=== PATIENT | female | born 1995 | race Two or more races ===

== ENCOUNTER 2016-10-08 06:02 | Emergency (ER) | payer MEDICAID ==
[~2016-10-08] VITALS: Ht 162.6 cm; Wt 55.3 kg
[~2016-10-08 06:02] MED LIST: AUGMENTIN 875-1 EAC1 ORAL; AZITHROMYCIN250 MG ORAL; IBUPROFEN600 MG ORAL; IBUPROFEN800 MG PO; NKM; PHENERGAN6.25 MG/5 ORAL
[2016-10-08 06:15] VITALS: BP 101/50
--- NOTE | 2016-10-08 06:26 | Emergency Room Report ---
History of Present Illness General Chief Complaint: Earache Source: Patient Present Illness HPI Is a 21-year-old female with no past medical history. She presents with chief complaint of right ear pain. Onset about 2 hours ago. Her nose also stuffy. Pain is 10 out of 10. Throbbing nature. No fever chills denies nausea no vomiting. She thinks she has allergy. She's been sneezing a lot. Allergies: Coded Allergies: No Known Allergies (Unverified , 11/02/12) Patient History Past Medical History: see triage record, old chart reviewed Past Surgical History: none Pertinent Family History: none Social History: Denies: smoking Last Menstrual Period: LAST MONTH Now: No Immunizations: other Reviewed Nursing Documentation: PMH: Agreed, PSxH: Agreed Nursing Documentation-PMH Past Medical History: No Stated History Review of Systems Eye: Denies: blurred vision, eye pain ENT: Reports: ear pain, Denies: nose congestion, throat swelling Respiratory: Denies: cough, shortness of breath Cardiovascular: Denies: chest pain, palpitations Gastrointestinal: Denies: abdominal pain, diarrhea, nausea, vomiting Musculoskeletal: Denies: back pain, joint pain Skin: Denies: rash Neurological: Denies: headache, numbness Endocrine: Denies: increased thirst, increased urine Hematologic/Lymphatic: Denies: easy bruising All Other Systems: negative except mentioned in HPI Physical Exam Vital Signs Date Time Temp Pulse Resp B/P Pulse Ox O2 Delivery O2 Flow Rate FiO2 10/08/16 06:06 97.9 96 16 92/47 100 Room Air vitals normal Sp02 EP Interpretation: reviewed, normal General Appearance: well appearing, no apparent distress, alert Head: normocephalic, atraumatic Eyes: bilateral eye EOMI, bilateral eye PERRL ENT: hearing grossly normal, normal pharynx, other - Right TM is erythematous and retracted. Neck: full range of motion, supple, no meningismus Respiratory: chest non-tender, lungs clear, normal breath sounds Cardiovascular #1: regular rate, rhythm, no murmur Gastrointestinal: normal bowel sounds, non tender, no mass, no organomegaly, no bruit, non-distended Musculoskeletal: back normal, gait/station normal, normal range of motion Psychiatric: mood/affect normal Skin: warm/dry Medical Decision Making Diagnostic Impression: Primary Impression: Right otitis media Qualified Codes: H66.001 - Acute suppurative otitis media without spontaneous rupture of ear drum, right ear Additional Impression: Allergic rhinitis Qualified Codes: J30.9 - Allergic rhinitis, unspecified ER Course Patient presents with right ear pain. She has no otitis media. Most likely secondary to obstruction from allergic component. She said she lives in a house is very old and has carpet. She's they have not changed a filter for air conditioning. This may be causing issue with allergies. We'll put her on antihistamine. No evidence of rupture tympanic membrane. No meningitis. Last Vital Signs Date Time Temp Pulse Resp B/P Pulse Ox O2 Delivery O2 Flow Rate FiO2 10/08/16 06:06 97.9 96 16 92/47 100 Room Air Status: improved Disposition: HOME, SELF-CARE Condition: Stable Scripts Loratadine (CLARITIN) 10 Mg Tablet 10 MG ORAL DAILY, #30 TAB Prov: SUMEET ROJAS M.D. 10/08/16 Ibuprofen* (MOTRIN*) 600 Mg Tablet 600 MG ORAL THREE TIMES A DAY, #30 TAB 0 Refills Prov: SUMEET ROJAS M.D. 10/08/16 Amoxicillin/Potassium Clav 875-125* (AUGMENTIN 875-125 TABLET*) 1 Each Tablet 1 TAB ORAL TWICE A DAY, #14 TAB Prov: SUMEET ROJAS M.D. 10/08/16 Patient Instructions: Otitis Media, Adult, [id number] Additional Instructions: Followup your doctor 7 days. Don't blow your nose. You may benefit from an air. Fire and changing to the filter on your air conditioning vent. Return if symptom worsen. SUMEET ROJAS M.D. Oct 08, 2016 06:26
[2016-10-08] MEDS ORDERED: AUGMENTIN 875-1 EAC1 ORAL (06:29)
[2016-10-08] MEDS ORDERED: IBUPROFEN600 MG ORAL (06:29)
[2016-10-08] MEDS ORDERED: CLARITIN10 MG ORAL (06:29)
[2016-10-08] MEDS ORDERED: Augmentin 875mg Tab ORAL ONE (06:30)
[2016-10-08 06:35] VITALS: BP 101/50
== END 2016-10-08 06:40 | disposition home or self-care (01) ==
LOC: EMR 06:40
DX: H66.001 Acute suppurative otitis media without spontaneous rupture of ear drum, right ear (principal); J30.9 Allergic rhinitis, unspecified
CPT/HCPCS: 99284

== ENCOUNTER 2018-07-22 14:19 | Emergency (ER) | payer MEDICAID ==
[~2018-07-22] VITALS: Ht 165.1 cm; Wt 52.2 kg
[~2018-07-22 14:19] MED LIST changes: +CLARITIN10 MG ORAL
[2018-07-22] MEDS ORDERED: NKM (14:31)
--- NOTE | 2018-07-22 14:32 | NUR ---
ED Nurse Note: a/ox4. ambulated in to ER due to left ankle pain 10/10 x last night. Pt reports that she tripped over when she was carrying a child last night. Pt states that she was able to ambulate yesterday but pain increased today.
--- NOTE | 2018-07-22 14:42 | Emergency Room Report ---
History of Present Illness General Chief Complaint: Lower Extremity Injury Source: Patient Present Illness HPI 23-year-old female patient presents the ER complaining of left foot and ankle pain status post injury 1 day ago. Reports that she was walking up stairs yesterday when she missed a step and twisted her foot. Reports does not remember how she twisted her foot. Reports pain with ambulation. Reports pain symptoms have improved since yesterday however still "very painful" to walk and bear weight. Reports took Tylenol yesterday for relief of symptoms. States does not take any medication today. Denies hitting her head or loss consciousness. Denies syncope or dizziness prior to fall. Denies fever, chest pain, shortness of breath. Allergies: Coded Allergies: No Known Allergies (Unverified , 07/22/18) Patient History Past Medical History: see triage record Last Menstrual Period: 07/21/18 Now: No Reviewed Nursing Documentation: PMH: Agreed; PSxH: Agreed Nursing Documentation-PMH Past Medical History: No Stated History Review of Systems All Other Systems: negative except mentioned in HPI Physical Exam Vital Signs Date Time Temp Pulse Resp B/P (MAP) Pulse Ox O2 Delivery O2 Flow Rate FiO2 07/22/18 14:27 98.4 135 18 102/48 95 Room Air Sp02 EP Interpretation: reviewed, normal General Appearance: well appearing, no apparent distress, alert, GCS 15, non- toxic Head: normocephalic, atraumatic Eyes: bilateral eye normal inspection, bilateral eye PERRL ENT: hearing grossly normal, normal pharynx, no angioedema, normal voice, uvula midline, moist mucus membranes Neck: full range of motion Respiratory: lungs clear, normal breath sounds, no rhonchi, no respiratory distress, no accessory muscle use, no wheezing, speaking full sentences Cardiovascular #1: regular rate, rhythm, no edema Cardiovascular #2: 2+ dorsalis pedis (R), 2+ dorsalis pedis (L) Musculoskeletal: back normal, digits/nails normal, gait/station normal, normal range of motion, swelling - Mild over dorsum of left foot, other - Cap refill less than 2 seconds,NVI, negative syndesmotic squeeze test, no tenderness to palpation over bilateral malleoli or base of fifth metatarsal, no ecchymosis or erythema, no deformity, tender Psychiatric: mood/affect normal Skin: no rash Medical Decision Making PA Attestation Dr. Elliott is my supervising Physician whom patient management has been discussed with. Diagnostic Impression: Primary Impression: Sprain of foot, left ER Course Pt. presents to the ED c/o left foot and ankle pain. Ddx considered but are not limited to fracture, sprain, strain, contusion, dislocation. No erythema, no warmth to touch, no fever, nontoxic appearing, low suspicion for septic joint. Soft compartments, no pulselessness, no pallor, no paresthesias, low suspicion for compartment syndrome at this time. Vital signs: are WNL, pt. is afebrile Ordered X-ray and pain medication. ER COURSE Provided with pain medication. An X-ray of the left foot shows possible fracture of the medial cuneiform, discussed with radiologist, possible fracture, advised on CT to further evaluate. Ordered CT foot. CT of foot negative for acute fracture. Discuss results with the patient. Provided patient with copy of results. Instructed patient to followup with PCP and discuss results of report with patient, discuss need for further treatment and referral. KI wrap and postop shoe was applied to the left foot and was checked afterwards by me showing good alignment and support with distal neurovascular functioning intact. Crutches provided. Patient instructed on RICE method: rest, ice, compression, elevation. Patient instructed on rest, ice and heat. Patient instructed to be WBAT Contact information for orthopedic urgent care provided, follow-up with urgent care if unable to followup with primary care provider and get referral to provider education specialist. Followup with primary care provider. Discuss referral to ortho/pain management/ PT as needed. Discuss further imaging with MRI/CT as needed. DISCHARGE: -Rx provided for Tylenol for pain symptoms. At this time pt. is stable for d/c to home. Patient is resting comfortably, in no acute distress, nontoxic appearing, talking without difficulty. Will provide printed patient care instructions, and any necessary prescriptions. Patient instructed to follow with primary care provider in 3 - 5 days and to request further follow-up as needed. Care plan and follow up instructions have been discussed with the patient prior to discharge. Take medications as directed. Patient questions asked and answered. Patient reports understanding and agreement to treatment plan. ER precautions given, patient instructed to return to ER immediately for any new or worsening of symptoms. - Please note that this Emergency Department Report was dictated using [employer] project manager technology software, occasionally this can lead to erroneous entry secondary to interpretation by the dictation equipment. Other X-Ray Diagnostic Results Other X-Ray Diagnostic Results : X-Ray ordered: Left foot # of Views/Limited Vs Complete: 3 View Indication: Pain EP Interpretation: Yes PA Xray: Interpretation reviewed, by supervising MD, and agrees with findings. Interpretation: no dislocation, no soft tissue swelling, no fractures Impression: No acute disease LATRICE AdleribFlynn Mandujano PA-C CT/MRI/US Diagnostic Results CT/MRI/US Diagnostic Results : Imaging Test Ordered: CT left foot Impression Negative for fracture Last Vital Signs Date Time Temp Pulse Resp B/P (MAP) Pulse Ox O2 Delivery O2 Flow Rate FiO2 07/22/18 14:27 98.4 135 18 102/48 95 Room Air Disposition: HOME, SELF-CARE Condition: Stable Scripts Ibuprofen* (MOTRIN*) 600 Mg Tablet 600 MG ORAL THREE TIMES A DAY, #30 TAB 0 Refills Prov: Diogenes Mandujano 07/22/18 Patient Instructions: Foot Sprain Additional Instructions: Patient instructed to follow up with primary care provider and discuss further referral to orthopedics/physical therapy/pain management as needed. If unable to followup with PCP, followup with orthopedic urgent care in 5-7 days , call to schedule appointment. Patient instructed on RICE method: rest, ice, compression, elevation. Patient instructed to WBAT. Take medications as directed. Patient questions asked and answered. ER precautions given, patient instructed to return to ER immediately for any new or worsening of symptoms. [facility] [address] [facility], [address] [email or web address] Diogenes Mandujano Jul 22, 2018 14:42
[2018-07-22] MEDS ORDERED: Acetaminophen 500mg (ES) tab ORAL ONE (14:45)
--- NOTE | 2018-07-22 16:39 | Diagnostic Imaging Report ---
Indication: Left foot pain status post fall Technique: Noncontrast spiral acquisitions obtained through the left foot Multiplanar reconstructions were generated. Total dose length product 362 mGycm. CTDIvol(s) 15 mGy. Radiation dose was minimized using automated exposure control Comparison: Foot radiograph of earlier the same day Findings: No acute fractures. No dislocations. The joint spaces are preserved. No significant joint effusion demonstrated Impression: Negative The CT scanner at [facility] is accredited by the [employer] and the scans are performed using protocols designed to limit radiation exposure to as low as reasonably achievable to attain images of sufficient resolution adequate for diagnostic evaluation.
[2018-07-22] MEDS ORDERED: IBUPROFEN600 MG ORAL (16:55)
--- NOTE | 2018-07-22 17:12 | Diagnostic Imaging Report ---
Indication: Foot pain after twisting ankle Technique: 3 views left foot Comparison: none Findings: On the AP view, there is equivocal slight irregularity of the middle cuneiform. This is not appreciated on other views. No other evidence of acute fracture. No dislocations. The joint spaces are preserved Impression: Slight irregularity of the middle cuneiform, subsequently demonstrated to be normal on CT. No definite acute bony trauma
[2018-07-22 17:15] VITALS: BP 102/48
--- NOTE | 2018-07-22 17:16 | NUR ---
ED Nurse Note: Patient is being discharged from medical care. Awake, alert and oriented x4. After care instructions, including prescriptions. Patient verbalized understanding of After care instructions. Patient signed patient consent in the medical record for patient destination upon discharge. All medical devices such as IV and ID band were removed. KI wrapped applied by TASHA Schaefer; pt was educated how to use crutches, pt was able to perform well. Patient ambulated out with all personal belongings with steady gait.
== END 2018-07-22 17:17 | disposition home or self-care (01) ==
LOC: EMR 16:21
DX: S93.602A Unspecified sprain of left foot, initial encounter (principal); X50.1XXA Overexertion from prolonged static or awkward postures, initial encounter; Y92.9 Unspecified place or not applicable
CPT/HCPCS: 99284